=== PATIENT | female | born 1965 | race Caucasian/White ===

== ENCOUNTER 2018-07-06 15:59 | Inpatient (IN) | payer MEDICARE ==
[2018-07-06 17:42] LABS: ADD MAN DIFF? NO
[2018-07-06 17:51] LABS: WHITE BLOOD COUNT 10.1 10^3/ul (4.8-10.8)
[2018-07-06 17:51] LABS: BASOPHILS % 0.3 % (0.0-2.0); EOSINOPHILS # 0.1 10^3/ul (0.0-0.5); HEMATOCRIT 39.3 % (37.0-47.0); HEMOGLOBIN 12.9 g/dl (12.0-16.0); LYMPHOCYTES # 1.6 10^3/ul (0.8-2.9); LYMPHOCYTES % 15.7 % (15.0-51.0); MEAN CORPUSCULAR HEMOGLOBIN 31.2 pg (29.0-33.0); MEAN CORPUSCULAR HGB CONC 32.8 g/dl (32.0-37.0); MEAN CORPUSCULAR VOLUME 94.9 fl (82.0-101.0); MEAN PLATELET VOLUME 9.3 fl (7.4-10.4); MONOCYTE # 0.8 10^3/ul (0.3-0.9); MONOCYTES % 7.6 % (0.0-11.0); NEUTROPHIL # 7.5 10^3/ul (1.6-7.5); NEUTROPHILS % 74.6 % (39.0-77.0); PLATELET COUNT 363 10^3/UL (140-415); RED BLOOD COUNT 4.14 10^6/ul (4.20-5.40); RED CELL DISTRIBUTION WIDTH 13.9 % (11.5-14.5)
[2018-07-06 18:10] LABS: ADD UMIC YES; INR 0.92; PROTIME 12.5 Sec (11.9-14.9); UR ASCORBIC ACID NEGATIVE (NEGATIVE); UR BILIRUBIN (Dip) NEGATIVE (NEGATIVE); UR BLOOD (Dip) 2+ mg/dL (NEGATIVE); UR CLARITY SLIGHTLY CLOUDY (CLEAR); UR COLOR YELLOW (YELLOW); UR GLUCOSE (Dip) NEGATIVE (NEGATIVE); UR KETONES (Dip) NEGATIVE (NEGATIVE); UR LEUKOCYTE ESTERASE (Dip) 2+ Leu/ul (NEGATIVE); UR NITRITE (Dip) POSITIVE (NEGATIVE); UR RBC 13 /HPF (0-5); UR SPECIFIC GRAVITY (Dip) 1.008 (1.003-1.030); UR SQUAMOUS EPITHELIAL CELL FEW /HPF (FEW); UR TOTAL PROTEIN (Dip) NEGATIVE (NEGATIVE); UR UROBILINOGEN (Dip) NEGATIVE (NEGATIVE); UR WBC 60 /HPF (0-5)
[2018-07-06 18:11] LABS: PARTIAL THROMBOPLASTIN TIME 27.5 Sec (23.0-35.0)
[2018-07-06 18:13] LABS: HEMOGLOBIN A1C 5.2 % (0-5.9)
[2018-07-06 18:14] LABS: ANION GAP 11 (5-13); BLOOD UREA NITROGEN 13 mg/dl (7-20); CALCIUM 9.8 mg/dl (8.4-10.2); CARBON DIOXIDE 28 mmol/L (21-31); CHLORIDE 99 mmol/L (97-110); CHOL/HDL RATIO 5.1 RATIO; CHOLESTEROL 144 mg/dl (100-200); CREATININE 0.74 mg/dl (0.44-1.00); Estimated GFR > 60 mL/min (>60); GLUCOSE 92 mg/dl (70-220); HDL CHOLESTEROL 28 mg/dl (37-92); LDL CHOLESTEROL,CALCULATED 93 mg/dl; POTASSIUM 3.5 mmol/L (3.5-5.1); SODIUM 138 mmol/L (135-144); TRIGLYCERIDES 115 mg/dl (0-149)
[2018-07-06 18:22] LABS: AMPHETAMINE/METHAMPHETAMINE Negative (NEGATIVE); BARBITURATES Negative (NEGATIVE); BENZODIAZEPINES Positive (NEGATIVE); CANNABINOIDS Negative (NEGATIVE); COCAINE Negative (NEGATIVE); OPIATES Positive (NEGATIVE)
[2018-07-06 18:23] LABS: TROPONIN-I < 0.012 ng/ml (0.000-0.120)
[2018-07-06] MEDS: oxyCODONE (CR) 15 MG TAB [oxyCONTIN] PO (18:40)
[2018-07-06] MEDS ORDERED: ONDANSETRON 4 MG INJ IV (19:30)
[2018-07-06] MEDS ORDERED: ACETAMINOPHEN 325 MG TAB PO (19:30)
[2018-07-06] MEDS: SOD CHLORIDE 0.9% 500 ML IV (22:50)
[2018-07-06] MEDS: KETOROLAC 30 MG INJ IV (23:46)
[2018-07-07] MEDS: oxyCODONE (CR) 15 MG TAB [oxyCONTIN] PO ×4 (01:43→20:38)
[2018-07-07] MEDS ORDERED: ONDANSETRON 4 MG INJ IV (04:00)
[2018-07-07] MEDS ORDERED: ACETAMINOPHEN 325 MG TAB PO (04:00)
[2018-07-07] MEDS ORDERED: NACL 0.9% 3 ML SYG IV (04:00)
[2018-07-07 06:10] LABS: ADD MAN DIFF? NO
[2018-07-07 06:15] LABS: BASOPHILS % 0.4 % (0.0-2.0); EOSINOPHILS # 0.1 10^3/ul (0.0-0.5); EOSINOPHILS % 1.9 % (0.0-7.0); HEMATOCRIT 37.7 % (37.0-47.0); LYMPHOCYTES # 1.7 10^3/ul (0.8-2.9); LYMPHOCYTES % 25.3 % (15.0-51.0); MEAN CORPUSCULAR HGB CONC 31.8 g/dl (32.0-37.0); MEAN CORPUSCULAR VOLUME 97.4 fl (82.0-101.0); MEAN PLATELET VOLUME 9.7 fl (7.4-10.4); MONOCYTE # 0.6 10^3/ul (0.3-0.9); MONOCYTES % 8.4 % (0.0-11.0); NEUTROPHIL # 4.4 10^3/ul (1.6-7.5); NEUTROPHILS % 63.1 % (39.0-77.0); PLATELET COUNT 329 10^3/UL (140-415); RED BLOOD COUNT 3.87 10^6/ul (4.20-5.40)
[2018-07-07 06:15] LABS: WHITE BLOOD COUNT 6.9 10^3/ul (4.8-10.8)
[2018-07-07 06:50] LABS: CK-MB 0.32 ng/ml (0.0-2.4); TROPONIN-I < 0.012 ng/ml (0.000-0.120)
[2018-07-07 07:00] LABS: ALANINE AMINOTRANSFERASE 17 IU/L (13-69); ALBUMIN 3.3 g/dl (3.3-4.9); ALBUMIN/GLOBULIN RATIO 1.32; ALKALINE PHOSPHATASE 49 IU/L (42-121); ANION GAP 5 (5-13); ASPARTATE AMINO TRANSFERASE 14 IU/L (15-46); BILIRUBIN,INDIRECT 0.2 mg/dl (0-1.1); BILIRUBIN,TOTAL 0.2 mg/dl (0.2-1.3); BLOOD UREA NITROGEN 13 mg/dl (7-20); CALCIUM 8.8 mg/dl (8.4-10.2); CARBON DIOXIDE 26 mmol/L (21-31); CHLORIDE 107 mmol/L (97-110); CHOLESTEROL 122 mg/dl (100-200); CK INDEX 0.6; CREATINE KINASE 50 IU/L (23-200); CREATININE 0.76 mg/dl (0.44-1.00); Estimated GFR > 60 mL/min (>60); GLUCOSE 101 mg/dl (70-220); HDL CHOLESTEROL 24 mg/dl (37-92); LDL CHOLESTEROL,CALCULATED 81 mg/dl; POTASSIUM 3.9 mmol/L (3.5-5.1); SODIUM 138 mmol/L (135-144); TOTAL PROTEIN 5.8 g/dl (6.1-8.1); TRIGLYCERIDES 85 mg/dl (0-149)
[2018-07-07 07:10] LABS: HEMOGLOBIN A1C 5.1 % (0-5.9)
[2018-07-07 07:52] LABS: THYROID STIMULATING HORMONE 0.579 MIU/L (0.465-4.680)
[2018-07-07] MEDS: CEFTRIAXONE 1 GM/50 ML (PMX) 50 ML IVPB (08:43)
[2018-07-07] MEDS: ASPIRIN 81 MG TAB PO (08:44)
[2018-07-07] MEDS: SPIRONOLACTONE 50 MG TAB PO (08:44)
[2018-07-07] MEDS: ESTRADIOL 1 MG TAB PO ×2 (08:45→20:37)
[2018-07-07] MEDS: morphine (ER) 30 MG TAB PO (09:00)
[2018-07-07 11:17] LABS: CREATINE KINASE 42 IU/L (23-200)
[2018-07-07 11:30] LABS: CK INDEX 0.5; CK-MB < 0.22 ng/ml (0.0-2.4); TROPONIN-I < 0.012 ng/ml (0.000-0.120)
[2018-07-07 14:27] LABS: HEPATITIS B SURFACE ANTIGEN NEGATIVE (NEGATIVE)
[2018-07-07 14:44] LABS: HEPATITIS C VIRAL ANTIBODY NEGATIVE (NEGATIVE)
[2018-07-07] MEDS: LAMOTRIGINE 25 MG TAB PO ×2 (14:59→20:37)
[2018-07-07] MEDS: FOSFOMYCIN 3 GM PACKET PO (15:00)
[2018-07-07] MEDS: LORAZEPAM 2 MG INJ IV (15:20)
[2018-07-07] MEDS: oxyCODONE 15 MG TAB PO ×2 (17:55→22:10)
[2018-07-08] MEDS: oxyCODONE 15 MG TAB PO ×4 (06:06→23:56)
[2018-07-08 06:08] LABS: ADD MAN DIFF? NO
[2018-07-08 06:14] LABS: BASOPHILS % 0.5 % (0.0-2.0); EOSINOPHILS # 0.2 10^3/ul (0.0-0.5); EOSINOPHILS % 2.3 % (0.0-7.0); HEMATOCRIT 39.2 % (37.0-47.0); HEMOGLOBIN 12.5 g/dl (12.0-16.0); LYMPHOCYTES # 1.9 10^3/ul (0.8-2.9); LYMPHOCYTES % 24.7 % (15.0-51.0); MEAN CORPUSCULAR HEMOGLOBIN 30.9 pg (29.0-33.0); MEAN CORPUSCULAR HGB CONC 31.9 g/dl (32.0-37.0); MEAN CORPUSCULAR VOLUME 96.8 fl (82.0-101.0); MEAN PLATELET VOLUME 9.6 fl (7.4-10.4); MONOCYTE # 0.6 10^3/ul (0.3-0.9); MONOCYTES % 7.8 % (0.0-11.0); NEUTROPHILS % 63.9 % (39.0-77.0); PLATELET COUNT 325 10^3/UL (140-415); RED BLOOD COUNT 4.05 10^6/ul (4.20-5.40); RED CELL DISTRIBUTION WIDTH 13.8 % (11.5-14.5)
[2018-07-08 06:14] LABS: WHITE BLOOD COUNT 7.8 10^3/ul (4.8-10.8)
[2018-07-08 06:44] LABS: ANION GAP 9 (5-13); BLOOD UREA NITROGEN 16 mg/dl (7-20); CALCIUM 9.2 mg/dl (8.4-10.2); CARBON DIOXIDE 26 mmol/L (21-31); CHLORIDE 104 mmol/L (97-110); Estimated GFR > 60 mL/min (>60); GLUCOSE 84 mg/dl (70-220); MAGNESIUM 1.9 mg/dl (1.7-2.5); PHOSPHORUS 4.3 mg/dl (2.5-4.9); POTASSIUM 4.2 mmol/L (3.5-5.1); SODIUM 139 mmol/L (135-144)
[2018-07-08] MEDS: CEFTRIAXONE 1 GM/50 ML (PMX) 50 ML IVPB (08:32)
[2018-07-08] MEDS: ASPIRIN 81 MG TAB PO (08:33)
[2018-07-08] MEDS: SPIRONOLACTONE 50 MG TAB PO (08:33)
[2018-07-08] MEDS: LAMOTRIGINE 25 MG TAB PO ×2 (08:33→20:21)
[2018-07-08] MEDS: ESTRADIOL 1 MG TAB PO ×2 (08:34→20:20)
[2018-07-08] MEDS: oxyCODONE (CR) 15 MG TAB [oxyCONTIN] PO ×2 (08:36→20:21)
[2018-07-08] MEDS: LORAZEPAM 2 MG INJ IV ×2 (14:00→16:41)
[2018-07-08 14:34] LABS: THYROID STIMULATING HORMONE 0.627 MIU/L (0.465-4.680)
[2018-07-08] MEDS: ENOXAPARIN 40 MG/0.4 ML SYG SC (15:54)
[2018-07-08] MEDS: IOHEXOL 100 ML (21:00)
[2018-07-08] MEDS: SOD CHLORIDE 0.9% 100 ML (21:00)
[2018-07-09] MEDS: oxyCODONE 15 MG TAB PO ×4 (05:24→20:28)
[2018-07-09] MEDS: CEFTRIAXONE 1 GM/50 ML (PMX) 50 ML IVPB (10:09)
[2018-07-09] MEDS: ESTRADIOL 1 MG TAB PO ×2 (10:10→20:27)
[2018-07-09] MEDS: ASPIRIN 81 MG TAB PO (10:10)
[2018-07-09] MEDS: SPIRONOLACTONE 50 MG TAB PO (10:10)
[2018-07-09] MEDS: LAMOTRIGINE 25 MG TAB PO ×2 (10:17→20:28)
[2018-07-09] MEDS: oxyCODONE (CR) 15 MG TAB [oxyCONTIN] PO ×2 (10:18→21:00)
[2018-07-09] MEDS: ENOXAPARIN 40 MG/0.4 ML SYG SC (10:43)
[2018-07-09 15:56] LABS: FOLLICLE STIMULATING HORMONE 2.8 mIU/mL
[2018-07-09] MEDS: LORAZEPAM 2 MG INJ IV (20:44)
[2018-07-10] MEDS: oxyCODONE 15 MG TAB PO ×4 (01:27→22:32)
[2018-07-10] MEDS: DIAZEPAM 5 MG TAB PO (01:39)
[2018-07-10] MEDS: CEFTRIAXONE 1 GM/50 ML (PMX) 50 ML IVPB (08:31)
[2018-07-10] MEDS: oxyCODONE (CR) 15 MG TAB [oxyCONTIN] PO ×2 (08:33→20:50)
[2018-07-10] MEDS: ASPIRIN 81 MG TAB PO (08:34)
[2018-07-10] MEDS: SPIRONOLACTONE 50 MG TAB PO (08:34)
[2018-07-10] MEDS: LAMOTRIGINE 25 MG TAB PO ×2 (08:34→20:50)
[2018-07-10] MEDS: ESTRADIOL 1 MG TAB PO ×2 (08:34→20:50)
[2018-07-10] MEDS: ENOXAPARIN 40 MG/0.4 ML SYG SC (08:44)
[2018-07-10] MEDS: LORAZEPAM 2 MG INJ IV ×3 (10:14→22:32)
[2018-07-10 10:41] LABS: ADD MAN DIFF? NO
[2018-07-10 10:50] LABS: WHITE BLOOD COUNT 7.5 10^3/ul (4.8-10.8)
[2018-07-10 10:50] LABS: BASOPHILS % 0.5 % (0.0-2.0); EOSINOPHILS # 0.2 10^3/ul (0.0-0.5); EOSINOPHILS % 2.7 % (0.0-7.0); HEMATOCRIT 41.1 % (37.0-47.0); HEMOGLOBIN 13.4 g/dl (12.0-16.0); LYMPHOCYTES # 1.8 10^3/ul (0.8-2.9); LYMPHOCYTES % 24.5 % (15.0-51.0); MEAN CORPUSCULAR HEMOGLOBIN 31.7 pg (29.0-33.0); MEAN CORPUSCULAR HGB CONC 32.6 g/dl (32.0-37.0); MEAN CORPUSCULAR VOLUME 97.2 fl (82.0-101.0); MEAN PLATELET VOLUME 9.5 fl (7.4-10.4); MONOCYTE # 0.5 10^3/ul (0.3-0.9); MONOCYTES % 6.7 % (0.0-11.0); NEUTROPHIL # 4.9 10^3/ul (1.6-7.5); NEUTROPHILS % 64.9 % (39.0-77.0); PLATELET COUNT 350 10^3/UL (140-415); RED BLOOD COUNT 4.23 10^6/ul (4.20-5.40); RED CELL DISTRIBUTION WIDTH 13.7 % (11.5-14.5)
[2018-07-10 11:12] LABS: ANION GAP 11 (5-13); BLOOD UREA NITROGEN 20 mg/dl (7-20); CALCIUM 9.6 mg/dl (8.4-10.2); CARBON DIOXIDE 23 mmol/L (21-31); CHLORIDE 104 mmol/L (97-110); CREATININE 0.69 mg/dl (0.44-1.00); Estimated GFR > 60 mL/min (>60); GLUCOSE 94 mg/dl (70-220); POTASSIUM 4.4 mmol/L (3.5-5.1); SODIUM 138 mmol/L (135-144)
[2018-07-10] MEDS: DIAZEPAM 2 MG TAB PO (21:38)
[2018-07-11] MEDS: LORAZEPAM 2 MG INJ IV ×4 (04:48→22:53)
[2018-07-11] MEDS: oxyCODONE 15 MG TAB PO ×4 (04:48→22:53)
[2018-07-11] MEDS: oxyCODONE (CR) 15 MG TAB [oxyCONTIN] PO ×2 (08:36→21:49)
[2018-07-11] MEDS: ESTRADIOL 1 MG TAB PO ×2 (08:36→21:17)
[2018-07-11] MEDS: ASPIRIN 81 MG TAB PO (08:36)
[2018-07-11] MEDS: LAMOTRIGINE 25 MG TAB PO ×2 (08:36→21:17)
[2018-07-11] MEDS: SPIRONOLACTONE 50 MG TAB PO (08:37)
[2018-07-11] MEDS: ENOXAPARIN 40 MG/0.4 ML SYG SC (08:41)
[2018-07-11] MEDS: DIAZEPAM 2 MG TAB PO ×3 (08:46→21:17)
[2018-07-11] MEDS: CEFTRIAXONE 1 GM/50 ML (PMX) 50 ML IVPB (08:47)
[2018-07-11 14:23] LABS: TESTOSTERONE 7 ng/dL (2-45)
[2018-07-12] MEDS: DIAZEPAM 2 MG TAB PO ×4 (03:22→23:45)
[2018-07-12] MEDS: LORAZEPAM 2 MG INJ IV ×5 (04:49→22:57)
[2018-07-12] MEDS: oxyCODONE 15 MG TAB PO ×4 (04:49→22:36)
[2018-07-12] MEDS: ESTRADIOL 1 MG TAB PO ×2 (08:27→22:14)
[2018-07-12] MEDS: LAMOTRIGINE 25 MG TAB PO ×2 (08:27→22:14)
[2018-07-12] MEDS: ASPIRIN 81 MG TAB PO (08:27)
[2018-07-12] MEDS: oxyCODONE (CR) 15 MG TAB [oxyCONTIN] PO ×2 (08:29→22:15)
[2018-07-12] MEDS: CEFTRIAXONE 1 GM/50 ML (PMX) 50 ML IVPB (08:29)
[2018-07-12] MEDS: ENOXAPARIN 40 MG/0.4 ML SYG SC (08:40)
[2018-07-13] MEDS: LORAZEPAM 2 MG INJ IV ×4 (02:47→22:52)
[2018-07-13] MEDS: oxyCODONE 15 MG TAB PO ×3 (06:13→22:07)
[2018-07-13] MEDS: DIAZEPAM 2 MG TAB PO ×2 (07:54→19:27)
[2018-07-13] MEDS: ESTRADIOL 1 MG TAB PO ×2 (09:49→22:06)
[2018-07-13] MEDS: LAMOTRIGINE 25 MG TAB PO ×2 (09:50→22:07)
[2018-07-13] MEDS: oxyCODONE (CR) 15 MG TAB [oxyCONTIN] PO ×3 (09:50→22:52)
[2018-07-13] MEDS: ENOXAPARIN 40 MG/0.4 ML SYG SC (09:53)
[2018-07-13] MEDS: ASPIRIN 81 MG TAB PO (09:55)
[2018-07-13] MEDS: MAGNESIUM CITRATE 300 ML BTL PO (13:28)
[2018-07-13] MEDS: DOCUSATE SODIUM 100 MG CAP PO (21:00)
[2018-07-14] MEDS: oxyCODONE 15 MG TAB PO ×3 (04:55→21:12)
[2018-07-14] MEDS: LORAZEPAM 2 MG INJ IV ×2 (05:40→14:07)
[2018-07-14] MEDS: DOCUSATE SODIUM 100 MG CAP PO ×2 (08:37→20:01)
[2018-07-14] MEDS: ESTRADIOL 1 MG TAB PO ×2 (08:37→20:01)
[2018-07-14] MEDS: LAMOTRIGINE 25 MG TAB PO ×3 (08:38→20:01)
[2018-07-14] MEDS: ENOXAPARIN 40 MG/0.4 ML SYG SC (08:39)
[2018-07-14] MEDS: oxyCODONE (CR) 15 MG TAB [oxyCONTIN] PO ×2 (08:39→20:05)
[2018-07-14] MEDS: ASPIRIN 81 MG TAB PO (08:40)
[2018-07-14] MEDS: DIAZEPAM 2 MG TAB PO ×2 (09:01→20:05)
[2018-07-14] MEDS: LORAZEPAM 1 MG TAB PO (22:38)
[2018-07-15] MEDS: DIAZEPAM 2 MG TAB PO ×3 (02:17→15:07)
[2018-07-15] MEDS: oxyCODONE 15 MG TAB PO ×3 (03:02→15:07)
[2018-07-15] MEDS: LORAZEPAM 1 MG TAB PO ×2 (05:49→10:53)
[2018-07-15] MEDS: ESTRADIOL 1 MG TAB PO ×2 (08:42→20:56)
[2018-07-15] MEDS: DOCUSATE SODIUM 100 MG CAP PO ×2 (08:43→20:57)
[2018-07-15] MEDS: LAMOTRIGINE 25 MG TAB PO ×2 (08:43→20:56)
[2018-07-15] MEDS: ASPIRIN 81 MG TAB PO (08:43)
[2018-07-15] MEDS: ENOXAPARIN 40 MG/0.4 ML SYG SC (08:44)
[2018-07-15] MEDS: oxyCODONE (CR) 15 MG TAB [oxyCONTIN] PO ×2 (10:04→20:57)
[2018-07-16] MEDS: DIAZEPAM 2 MG TAB PO ×2 (01:23→16:22)
[2018-07-16] MEDS: oxyCODONE 15 MG TAB PO ×3 (01:24→16:04)
[2018-07-16] MEDS: LORAZEPAM 1 MG TAB PO ×2 (04:00→12:31)
[2018-07-16] MEDS: ESTRADIOL 1 MG TAB PO (10:07)
[2018-07-16] MEDS: LAMOTRIGINE 25 MG TAB PO (10:07)
[2018-07-16] MEDS: ASPIRIN 81 MG TAB PO ×2 (10:07→11:33)
[2018-07-16] MEDS: DOCUSATE SODIUM 100 MG CAP PO (10:07)
[2018-07-16] MEDS: oxyCODONE (CR) 15 MG TAB [oxyCONTIN] PO ×2 (10:07→11:33)
[2018-07-16] MEDS: ENOXAPARIN 40 MG/0.4 ML SYG SC (10:11)
== END 2018-07-16 17:35 | DRG 74 ==
LOC: 2NE 07-13 01:07 → E/R 15:59 → 6WM 19:13
DX: M54.10 Radiculopathy, site unspecified (principal); G90.512 Complex regional pain syndrome I of left upper limb; N30.00 Acute cystitis without hematuria; F11.20 Opioid dependence, uncomplicated; G89.4 Chronic pain syndrome; Z87.820 Personal history of traumatic brain injury; I95.9 Hypotension, unspecified; F64.9 Gender identity disorder, unspecified; M54.40 Lumbago with sciatica, unspecified side; M54.2 Cervicalgia; M17.0 Bilateral primary osteoarthritis of knee; R00.1 Bradycardia, unspecified; Z98.890 Other specified postprocedural states; F17.200 Nicotine dependence, unspecified, uncomplicated
CPT/HCPCS: 36415; 70450; 70496; 70498; 70551; 71045; 72141; 72146; 72148; 80048; 80053; 80061; 80307; 81001; 82550; 82553; 82962; 83001; 83036; 83735; 84100; 84403; 84443; 84484; 85025; 85610; 85730; 86803; 87086; 87340; 92610; 93005; 93306; 95819; 97110; 97116; 97162; 97530; 99217; 99285-25; G0378